=== PATIENT | male | born 1970 | race Caucasian/White ===

== ENCOUNTER → 2018-12-05 | Outpatient (CLI) | payer BC ==
--- NOTE | 2018-12-05 15:34 | PCVCIMAG ---
APPROVED REPORT Study performed: 12/05/2018 13:02:10 EXAM: Comprehensive 2D, Doppler, and color-flow Echocardiogram Patient Location: Echo lab Status: stat BSA: 2.20 HR: 58 bpmBP: 116/70 mmHg Rhythm: NSR Other Information Study Quality: Good Indications Aortic Valve Disease Aortic Valve replacement. 2D Dimensions IVSd: 13.91 (7-11mm)LVOT Diam: 21.94 (18-24mm) LVDd: 41.94 mm PWd: 13.37 (7-11mm)Ascending Ao: 45.79 (22-36mm) LVDs: 24.52 (25-40mm) Left Atrium: 35.11 (27-40mm) Aortic Root: 44.91 mm LV Single Plane 4CH: 59.42 % LV Single Plane 2CH: 59.39 % Biplane EF: 59.0 % Volumes Left Atrial Volume (Systole) Single Plane 4CH: 52.22 mLSingle Plane 2CH: 57.62 mL LA ESV Index: 27.00 mL/m2 Aortic Valve AoV Peak Waylon.: 1.91 m/s AO Peak Gr.: 14.66 mmHgLVOT Max P.75 mmHg AO Mean Gr.: 8.04 mmHgLVOT Mean P.01 mmHg AO V2 Mean: 1.33 m/sLVOT Max V: 1.15 m/s AO V2 VTI: 37.86 cmLVOT Mean V: 0.84 m/s MILAD (VTI): 2.24 [id number] V1 VTI: 22.46 cm MILAD Vmax: 2.27 cm2 SV (LVOT): 84.91 mL Mitral Valve E/A Ratio: 1.1 MV Decel. Time: 228.61 ms MV E Max Waylon.: 0.74 m/s MV A Waylon.: 0.68 m/s TDI E/Lateral E': 7.40E/Medial E': 8.22 Medial E' Waylon.: 0.09 m/s Lateral E' Waylon.: 0.10 m/s Pulmonary Vein P Vein S: 0.69 m/sP Vein A: 0.45 m/s P Vein D: 0.52 m/sP Vein A Dur.: 107.3 msec P Vein S/D Ratio: 1.33 Tricuspid Valve TR Peak Waylon.: 2.30 m/s TR Peak Gr.: 21.24 mmHg Left Ventricle The left ventricle is normal size. There is normal LV segmental wall motion. There is normal left ventricular wall thickness. Left ventricular systolic function is normal. The left ventricular ejection fraction is within the normal range. LVEF is 55-60%. The left ventricular diastolic function is normal. Right Ventricle The right ventricle is normal size. The right ventricular systolic function is normal. Atria The left atrium size is normal. The right atrium size is normal. Aortic Valve Aortic Valve replaced.daniels tissue valve No aortic regurgitation is present. Peak gradient 14mmHg. Mean 8mmHg. Mitral Valve The mitral valve is normal in structure. There is no mitral valve regurgitation noted. No evidence of mitral valve stenosis. Tricuspid Valve The tricuspid valve is normal in structure. Trace tricuspid regurgitation. Pulmonary artery pressure is 29mmhg. Pulmonic Valve The pulmonary valve is normal in structure. There is no pulmonic valvular regurgitation. Great Vessels The aortic root is normal in size. Aortic Root measures 4.5cm. Ascending measures 4.6-4.9cm2.hemishield IVC is normal in size and collapses >50% with inspiration. Pericardium There is no pericardial effusion. <Conclusion> The left ventricle is normal size. LVEF is 55-60%. The left ventricular diastolic function is normal. The right ventricle is normal size. The left atrium size is normal. Aortic Valve replaced. Aortic Valve replaced.daniels tissue valve Peak gradient 14mmHg. Mean 8mmHg. There is no mitral valve regurgitation noted. The aortic root is normal in size. Aortic Root measures 4.5cm. Ascending measures 4.6-4.9cm2.hemishield There is no pericardial effusion.
== END | disposition home or self-care (01) ==
LOC: PCVCIMAG 12:58
PROVIDERS: ATTEND Internal Medicine Cardiovascular Disease
DX: I35.0 Nonrheumatic aortic (valve) stenosis (principal); I10 Essential (primary) hypertension; E78.00 Pure hypercholesterolemia, unspecified; Z95.2 Presence of prosthetic heart valve; Z72.89 Other problems related to lifestyle
CPT/HCPCS: 93306